=== PATIENT | female | born 1960 | race Caucasian/White ===

== ENCOUNTER 2016-04-20 11:28 | Outpatient (CLI) | payer MEDICAID | END 2016-04-20 11:29 | disposition home or self-care (01) | DX: F32.9 Major depressive disorder, single episode, unspecified (principal); Z13.6 Encounter for screening for cardiovascular disorders ==

== ENCOUNTER 2016-04-29 09:52 | Outpatient (CLI) | payer MEDICAID | END 2016-04-29 09:53 | disposition home or self-care (01) | DX: Z12.31 Encounter for screening mammogram for malignant neoplasm of breast (principal) ==